=== PATIENT | male | born 2000 | race Caucasian/White ===

== ENCOUNTER 2024-11-11 00:21 | Emergency (ER) | payer SELFPAY ==
[~2024-11-11] VITALS: Ht 180.3 cm; Wt 98.0 kg
[2024-11-11 00:33] VITALS: TEMP 98.6
[2024-11-11 01:57] LABS: MEAN PLATELET VOLUME 7.3 FL (7.4-10.4); RED CELL DISTRIBUTION WIDTH 13.2 % (11.5-14.5)
[2024-11-11] MEDS: LIDOcaine 2% Viscous 15ml cup MM ONE (02:13)
[2024-11-11] MEDS: mag hydrox/Alum hydrox/simeth 30ml oral suspension PO ONE (02:13)
--- NOTE | 2024-11-11 02:26 | Physician Documentation ---
History of Present Illness ~ Chief Complaint: Anxiety Stated Complaint: ANXIETY Time Seen by MD: 01:52 Source: patient, EMS, EMS notes reviewed Mode of Arrival: EMS Exam Limitations: no limitations HPI Chief Complaint: Anxiety, unable to sleep Caveat: None Independent Historians: Paramedics History of Present Illness: Patient is a 24-year-old man with hypothyroidism who complains of feeling anxious and unable to sleep. Patient states that he has a feeling like his throat is closing in and he is afraid to go to sleep because he is afraid he is going to stop breathing. When asked how long he has had this sensation in his neck he states for four years. Patient denies any other new or acute symptoms. Patient denies any chest pain. No shortness a breath. Patient states that he has not been on his Synthroid for at least a year because he has been unable to afford it. Review of systems: All systems were reviewed and are negative except for what is indicated in the history of present illness. Past Medical History: Hypothyroidism Past Surgical History: Noncontributory Social History: Vapes, denies alcohol use, denies drug use Medications: Reviewed as documented Nursing Notes Allergies: Reviewed as documented in Nursing Notes Medication Reconciliation Allergies: Coded Allergies: No Known Allergies (Unverified , 11/11/24) Past Medical History Past Medical History: No Pertinent History Alcohol Use: Abuse Drug Use: none Review of Systems All Other Systems at this time: Reviewed and Negative ROS Patient denies any other acute symptoms other than above. All other systems are negative Physical Exam Vital Signs: RN Vital Signs have been reviewed: Yes, Temperature: 98.6, Source: Temporal, Heart Rate: 99, Respiratory Rate: 18, BP: 135/97, Pulse Oximetry: 98, Weight: 98.000 Pulse Oximetry Reflects: adequate oxygenation Physical Exam General Appearance: No distress HEENT: Normal OP, moist oral mucosa, PERRL, EOMI Neck: supple, normal ROM, trachea midline, no goiter Pulmonary: No respiratory distress, CTA, BS equal Cardiac: RRR, no murmur, rub or gallop, Skin: intact, dry, warm, no rashes Neuro: AAOx3, speech is clear, no focal motor weakness Psych: Flat affect, poor eye contact, no apparent hallucination, normal speech Progress Results/Orders Results/Orders Orders - GEORGE ALEXANDRA MD Drug Screen, Urine (11/11/24 02:01) Levothyroxine Tablet (Synthroid Tablet) (11/11/24 02:20) Completed Orders - GEORGE ALEXANDRA MD Cbc/Diff (11/11/24 00:48) TSH (11/11/24 00:48) Mag & Alum Hydrox/Simeth Susp (Maalox Or (11/11/24 02:05) Sucralfate Tablet (Carafate Tablet) (11/11/24 02:05) Lidocaine 2% Viscous (Xylocaine 2% Visco (11/11/24 02:05) Medications Received in ER Medications (Trade) Dose Ordered Sig/Monie Route PRN Reason Start Time Stop Time Status Last Admin Dose Admin (Maalox oral suspension) 30 ml ONCE ONCE PO 11/11/24 02:05 11/11/24 02:06 DC 11/11/24 02:13 30 ML (Carafate tablet) 1 gm ONCE ONCE PO 11/11/24 02:05 11/11/24 02:06 DC 11/11/24 02:12 1 GM (Xylocaine 2% Viscous 15mL cup) 20 ml ONCE ONCE MM 11/11/24 02:05 11/11/24 02:06 DC 11/11/24 02:13 20 ML Vital Signs 11/11/24 00:33 Temp 98.6 Pulse 99 Resp 18 B/P (MAP) 135/97 Pulse Ox 98 Laboratory Tests Test 11/11/24 01:27 White Blood Count 14.7 H Red Blood Count 5.60 Hemoglobin 16.0 Hematocrit 46.6 Mean Corpuscular Volume 83.3 Mean Corpuscular Hemoglobin 28.6 Mean Corpuscular Hemoglobin Concent 34.3 Red Cell Distribution Width 13.2 Platelet Count 419 Mean Platelet Volume 7.3 L Neutrophils (%) (Auto) 80.7 H Lymphocytes (%) (Auto) 13.8 L Monocytes (%) (Auto) 5.1 Eosinophils (%) (Auto) 0 Basophils (%) (Auto) 0.4 Neutrophils # (Auto) 11.9 H Lymphocytes # (Auto) 2.0 Monocytes # (Auto) 0.8 Eosinophils # (Auto) 0.0 Basophils # (Auto) 0.1 CBC Comment Thyroid Stimulating Hormone (TSH) 4.53 H Medical Decision Making Findings Differential diagnosis includes but is not limited to: Anxiety, hypothyroidism Laboratory data independent interpretation: CBC: Leukocytosis of 14.7 TSH: 4.53 Toxicology: Emergency department course/medical decision-making: Patient presents with anxiety and insomnia. Patient has chronic sensation of his throat and neck being tight. Patient has not been on his Synthroid. Patient is given a dose here and a prescription. Patient needs to follow up with the primary care doctor for management of his hypothyroidism and anxiety. Patient was given a GI cocktail to see if this would help with the sensation in his throat and neck. Patient did not tolerate the GI cocktail and vomited afterwards. Patient is given Zofran 4 mg. There was no evidence of a medical or surgical emergency. Test results reviewed with the patient. Patient is stable for discharge. Leukocytosis sources unknown. Patient is afebrile. No suspicion of a pneumonia or intra-abdominal infection. Departure Time of Disposition: 02:23 Disposition: 01 HOME / SELF CARE / HOMELESS Impression: Primary Impression: Anxiety Additional Impression: Hypothyroidism Qualified Codes: E03.9 - Hypothyroidism, unspecified Condition: Stable Discharge Instructions: Generalized Anxiety Disorder, Adult, Hypothyroidism Additional Instructions: FOLLOW UP WITH A PRIMARY CARE DOCTOR FOR YOUR ANXIETY AND INSOMNIA AND HYPOTHYROIDISM. Prescriptions Levothyroxine Sodium (Synthroid) 50 Mcg Tablet 1 TAB PO DAILY for 30 Days, #30 TAB 0 Refills Prov: GEORGE ALEXANDRA MD 11/11/24 Education Educated: Patient Educated regarding: diagnosis, treatment, need for follow up Signature Scribe Signature: NO SCRIBE Attestation: NO SCRIBE GEORGE ALEXANDRA MD Nov 11, 2024 02:26
[2024-11-11] MEDS ORDERED: LEVO50TA PO (02:27)
[2024-11-11] MEDS: ondansetron 4mg rapidly disintigrating tab PO ONE (02:31)
[2024-11-11 02:32] VITALS: BP 142/108; PULSE 77; RESP 16; O2SAT 98
[2024-11-11] MEDS: levoTHYROXINE 25mcg tablet PO STA (02:40)
== END 2024-11-11 02:45 | disposition home or self-care (01) ==
LOC: ER 00:22
DX: F41.9 Anxiety disorder, unspecified (principal); E03.9 Hypothyroidism, unspecified; F17.290 Nicotine dependence, other tobacco product, uncomplicated
CPT/HCPCS: 36415; 84443; 85025; 99284